=== PATIENT | male | born 1955 | race Two or more races ===

== ENCOUNTER 2023-05-25 21:53 | Emergency (ER) | payer MEDICARE, OTHER, SELFPAY ==
[2023-05-25 21:55] VITALS: BP 144/70
[2023-05-25] MEDS: ADACEL 0.5 ML IM (23:26)
--- NOTE | 2023-05-25 23:28 | ED.SKININJ ---
HPI-Injury
General
Chief Complaint: Skin Surface Trauma
Source: patient
Exam Limitations: none
Time Seen by Provider: 05/25/23 22:47
Travel History
Have you had any contact with someone who has COVID-19?: No
Do you have any symptoms of coronavirus? Fever > 100 degrees, chills, cough, shortness of breath, sore throat, loss of taste or smell, muscle aches, or headache?: No
History of Present Illness-Injury
Initial Injury comments:
68-year-old male presents with splinter in right ring finger he sustained today. Last tetanus unknown. No other complaints at this
Phy Exam
Physical Exam
Physical Exam:
General: Well-appearing male no acute distress
Skin: Puncture wound noted to the right ring finger dorsally approximately to the nail and an exit wound noted over the ulnar distal portion of the finger. Subdermally there is a palpable foreign body but not visible
Course
Orders/Labs/Results
Orders:
Orders
05/25/23 22:08
Hand, Right 3 View [CR Hand - Right Min 3 Views] Urgent
Comment:
Reason For Exam: trauma
05/25/23 23:11
Tetanus/Diphth/Acelpertussis [Adacel] 0.5 ml IM .ONCE ONE
Vital Signs
Initial and Last Documented VS:
Initial Vital Signs
Temp Pulse Resp BP Pulse Ox
97.7 F 48 20 144/70 97
05/25/23 21:55 05/25/23 21:55 05/25/23 21:55 05/25/23 21:55 05/25/23 21:55
Last Documented Vital Signs
Temp Pulse Resp BP Pulse Ox
97.7 F 48 20 144/70 97
05/25/23 21:55 05/25/23 21:55 05/25/23 21:55 05/25/23 21:55 05/25/23 21:55
MDM/Problems Addressed
Differential Diagnosis Includes:
X-rays were taken of the right hand through triage which are negative for obvious foreign body however clinically the patient does appear to have 1. The finger was sterilely prepped and anesthetized with 1% plain lidocaine. A small incision was
used using a 15 blade and dissection was made bluntly with a needle drivers. Was unable to visualize the end of the splinter and pulled with the needle drivers. The splinter was removed in its entirety. A dressing was applied and patient stable
for discharge
*Critical Care Note
Total Time (30-74mins, 75-104mins- exclusive of procedures): Not Applicable
ED Attending Note
-
Portions of this chart may have been created with voice recognition software.� Occasional wrong word or��sound alike� substitutions may have occurred due to the inherent limitations of voice recognition software.
Discharge Plan
Departure
Patient Disposition: Home (Routine Discharge)
Date of Disposition: 05/25/23
Time of Disposition: 23:30
Patient with high blood pressure during this ER visit?: No
Discharge Problem:
Foreign body (FB) in soft tissue
Instructions: Wound Care (DC)
Referrals:
UNKNOWN - PT DOES,NOT KNOW [Family Provider] -
Activity Restrictions/Additional Instructions:
You may use Tylenol if needed for pain. Return if needed otherwise
Interventions
Interventions:
*Risk Screen - Suicide Last Done: 05/25/23 21:55
*Neglect/Abuse Screening Last Done: 05/25/23 21:55
ED- Fall Risk Assessment Last Done: 05/25/23 22:59
ED-Skin Assessment Last Done: 05/25/23 22:57
Discharge Date and Time
Print Language: [place]
== END 2023-05-25 23:36 | disposition home or self-care (01) ==
LOC: EMR 21:53
PROVIDERS: EMERGENCY PHYSICIAN Emergency Medicine
DX: S60.454A Superficial foreign body of right ring finger, initial encounter (principal); W45.8XXA Other foreign body or object entering through skin, initial encounter; Z23 Encounter for immunization
CPT/HCPCS: 99284; 10120; 90471; 73130; 90715